=== PATIENT | male | born 1970 | race Caucasian/White ===

== ENCOUNTER 2016-11-04 10:49 | Emergency (ER) | payer OTHER ==
[2016-11-04 11:03] VITALS: BP 147/95
--- NOTE | 2016-11-04 11:21 | UC ---
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 - History of Current Complaint Chief Complaint: UCBackPain Stated Complaint: BACK PAIN Time Seen by Provider: 11/04/16 11:04 Hx Obtained From: Patient Onset/Duration: Sudden Onset, Lasting Days Timing: Constant Severity Initially: Mild Severity Currently: Moderate Pain Intensity: 6 Pain Scale Used: 0-10 Numeric Character: Sharp, Throbbing, Spasmodic Aggravating: Movement, Lifting, Cough Associated Signs And Symptoms: Positive: Negative - Allergies/Home Medications Allergies/Adverse Reactions: Allergies Allergy/AdvReac Type Severity Reaction Status Date / Time Lidocaine Allergy Hives Verified 11/04/16 10:53 Home Medications: Home Medications Acetaminophen TAB* [Tylenol TAB*] 1,000 mg PO Q6H PRN 11/04/16 [History Confirmed 11/04/16] Atorvastatin* [Lipitor*] 20 mg PO QPM 11/04/16 [History Confirmed 11/04/16] Ibuprofen TAB* [Advil TAB*] 600 mg PO Q6H PRN 11/04/16 [History Confirmed ] Pantoprazole TAB (NF) [Protonix TAB (NF)] 40 mg PO DAILY 11/04/16 [History Confirmed 11/04/16] busPIRone TAB* [Buspar TAB *] 1.5 tab PO BID 11/04/16 [History Confirmed ] PMH/Surg Hx/FS Hx/Imm Hx Previously Healthy: Yes - Surgical History Surgical History: Yes Surgery Procedure, Year, and Place: left knee surgery, skin cancer removal, nasal surgeries - Family History Known Family History: Positive: Hypertension - Social History Alcohol Use: Daily Alcohol Amount: 2 beers Substance Use Type: Marijuana Substance Use Comment - Amount & Last Used: last used Thursday Smoking Status (MU): Never Smoked Tobacco Review of Systems Constitutional: Negative Skin: Negative Eyes: Negative ENT: Negative Respiratory: Negative Cardiovascular: Negative Gastrointestinal: Negative Genitourinary: Negative Motor: Negative Neurovascular: Negative Musculoskeletal: Myalgia Neurological: Negative Psychological: Negative All Other Systems Reviewed And Are Negative: Yes Physical Exam Triage Information Reviewed: Yes Appearance: Well-Appearing, No Pain Distress, Well-Nourished Vital Signs: Initial Vital Signs Temp 99.2 F 11/04/16 10:55 Pulse 81 11/04/16 10:55 Resp 16 11/04/16 10:55 BP 147/95 11/04/16 10:55 Pulse Ox 99 11/04/16 10:55 Eyes: Positive: Conjunctiva Clear ENT: Positive: Normal ENT inspection. Negative: Nasal congestion, Nasal drainage, Trismus, Muffled/hoarse voice Dental: Negative: Gross Decay/Caries @ Neck: Positive: Supple, Nontender, No Lymphadenopathy Respiratory: Positive: Lungs clear, Normal breath sounds, No respiratory distress, No accessory muscle use Cardiovascular: Positive: RRR, No Murmur Musculoskeletal: Positive: ROM Intact, No Edema Neurological: Positive: Alert Psychological Exam: Normal Skin Exam: Normal Back Pain Course/Dx - Course Course Of Treatment: declines PT consult or prolonged out of work note - Differential Dx/Diagnosis Provider Diagnoses: right thoraic back strain/spasm. elevated BP (suspect due to pain) Discharge - Discharge Plan Condition: Stable Disposition: HOME Prescriptions: Cyclobenzaprine TAB* [Flexeril TAB*] 5 mg PO TID PRN #12 tab PRN Reason: Spasms HYDROcodone/ACETAMIN 5-325 MG* [[place] 5-325 TAB*] 1 tab PO Q4H PRN #15 tab MDD 4 PRN Reason: Pain Patient Education Materials: Thoracic Back Strain (ED) Forms: *Work Release Referrals: Alex Ren MD [Primary Care Provider] - 1 Week Additional Instructions: continue ibuprofen 600 mg 4x day as needed for pain-take with food both muscle relaxer and narcotic will cause drowsiness dont't take and drive or work Images Front/Back of Body, Lg ([place]): 1 - pain here
== END 2016-11-04 11:32 | disposition home or self-care (01) ==
LOC: UCCORT 10:49
DX: S29.012A Strain of muscle and tendon of back wall of thorax, initial encounter (principal); X50.9XXA Other and unspecified overexertion or strenuous movements or postures, initial encounter
CPT/HCPCS: 99202; G0463

== ENCOUNTER 2017-08-15 13:42 | Emergency (ER) | payer OTHER ==
[2017-08-15 14:12] VITALS: BP 142/87
--- NOTE | 2017-08-15 14:15 | UC ---
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 Onset/Duration: Sudden Onset Skin Exposure Onset/Duration: Days Ago Timing: Constant Onset Severity: Moderate Current Severity: Moderate Location: Hand (Left) Character: Swelling, Redness, Painful - Allergy/Home Medications Allergies/Adverse Reactions: Allergies Allergy/AdvReac Type Severity Reaction Status Date / Time lidocaine Allergy Swelling Verified 08/15/17 14:11 Of Face,Lips,& Throat Review of Systems Constitutional: Negative Skin: Negative Eyes: Negative ENT: Negative Respiratory: Negative Cardiovascular: Negative Gastrointestinal: Negative Genitourinary: Negative Motor: Negative Neurovascular: Negative Musculoskeletal: Negative Neurological: Negative Psychological: Negative All Other Systems Reviewed And Are Negative: Yes PMH/Surg Hx/FS Hx/Imm Hx Previously Healthy: Yes - Surgical History Surgical History: Yes Surgery Procedure, Year, and Place: left knee surgery, skin cancer removal, nasal surgeries - Family History Known Family History: Positive: Hypertension - Social History Alcohol Use: Daily Alcohol Amount: 2 beers Substance Use Type: Marijuana Substance Use Comment - Amount & Last Used: last used Thursday Smoking Status (MU): Never Smoked Tobacco Physical Exam Triage Information Reviewed: Yes Appearance: No Pain Distress Eye Exam: Normal ENT Exam: Normal Dental Exam: Normal Neck exam: Normal Neck: Positive: 1 Respiratory Exam: Normal Cardiovascular Exam: Normal Abdominal Exam: Normal Musculoskeletal Exam: Normal Neurological Exam: Normal Psychological Exam: Normal Skin Exam: Normal Laceration Repair - Laceration Repair 1 Description: Irregular Modified For Repair: No Cleansing Completed Via Routine Prep: Yes Irrigation With Pressure Irrigation Device: Yes Closure Material: Skin Adhesive Closure Method: Single Layer Suture Of: Skin Course/Dx - Course Course Of Treatment: wound repaired with dermabond with intact skin flap after thorough irrigation f/by tdap booster and IM rocephin injection - Diagnoses Provider Diagnoses: left hand laceration. puncture wound Discharge - Sign-Out/Discharge Documenting (check all that apply): Discharge/Admit/Transfer - Discharge Plan Condition: Stable Disposition: HOME Prescriptions: Cephalexin CAP* [Keflex CAP*] 500 mg PO QID 10 Days #40 cap Referrals: Kayla Mortenesn PA [Primary Care Provider] - - Billing Disposition and Condition Condition: STABLE Disposition: HOME
[2017-08-15] MEDS ORDERED: Tetan/Diph/Pertus SYR(Tdap)* 0.5 ML SYR(BOOSTRIX) use SYR IM ONE (14:18)
[2017-08-15] MEDS ORDERED: cefTRIAXone VIAL(*) 1,000 MG VIAL IM ONE (14:21)
== END 2017-08-15 15:28 | disposition home or self-care (01) ==
LOC: UCCORT 13:42
DX: Z88.4 Allergy status to anesthetic agent (principal); S61.432A Puncture wound without foreign body of left hand, initial encounter; W45.8XXA Other foreign body or object entering through skin, initial encounter; Y93.9 Activity, unspecified; Y92.9 Unspecified place or not applicable; Z23 Encounter for immunization
CPT/HCPCS: 12001; 90471; 90715; 96372; 99212; G0463; J0696

== ENCOUNTER 2018-12-23 18:30 | Emergency (ER) | payer OTHER ==
[2018-12-23 19:02] VITALS: BP 126/87
[2018-12-23] MEDS ORDERED: predniSONE TAB* 20 MG PO ONE (20:47)
--- NOTE | 2018-12-23 20:58 | UC ---
Skin Complaint HPI - HPI Summary HPI Summary: 3 DAYS OF ITCHY RASH ON SHOULDERS, BACK AND ABDOMEN. 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 HE WAS SHIRTLESS AT THE TIME. HUNTING BLIND HAD BEEN OUT IN THE [place] FOR A FEW WEEKS. NO TONGUE/LIP SWELLING. NO RESPIRATORY INVOLVEMENT. 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 - Onset/Duration: Sudden Onset, Lasting Days, Still Present Timing: Constant Onset Severity: Moderate Current Severity: Moderate Pain Intensity: 0 Pain Scale Used: 0-10 Numeric Character: Pruritus, Redness Aggravating Factor(s): Touch Alleviating Factor(s): Nothing Associated Signs & Symptoms: Positive: Rash - Allergy/Home Medications Allergies/Adverse Reactions: Allergies Allergy/AdvReac Type Severity Reaction Status Date / Time loratadine Allergy Swelling Verified 12/23/18 19:02 Of Face,Lips,& Throat PMH/Surg Hx/FS Hx/Imm Hx Other Cancer History: SKIN CANCER - Surgical History Surgical History: Yes Surgery Procedure, Year, and Place: left knee surgery, skin cancer removal, nasal surgeries - Family History Known Family History: Positive: Hypertension - Social History Alcohol Use: Daily Alcohol Amount: 2 beers Substance Use Type: Marijuana Substance Use Comment - Amount & Last Used: daily Smoking Status (MU): Never Smoked Tobacco - Immunization History Most Recent Tetanus Shot: WITHIN THE LAST 10 YRS Review of Systems All Other Systems Reviewed And Are Negative: Yes Constitutional: Positive: Negative Skin: Positive: Rash Respiratory: Positive: Negative Cardiovascular: Positive: Negative Gastrointestinal: Positive: Negative Physical Exam Triage Information Reviewed: Yes Appearance: Well-Appearing, No Pain Distress, Well-Nourished Vital Signs: Initial Vital Signs Temp 97.9 F 12/23/18 18:57 Pulse 70 12/23/18 18:57 Resp 18 12/23/18 18:57 BP 126/87 12/23/18 18:57 Pulse Ox 99 12/23/18 18:57 Vital Signs Reviewed: Yes Eyes: Positive: Conjunctiva Clear ENT: Positive: Hearing grossly normal Neck: Positive: Supple Respiratory: Positive: No respiratory distress, No accessory muscle use Cardiovascular: Positive: Pulses Normal Abdomen Description: Positive: Soft Musculoskeletal: Positive: No Edema Neurological: Positive: Alert Psychological: Positive: Normal Response To Family, Age Appropriate Behavior Skin: Positive: Rashes - MACULOPAPULAR ERYTHEMATOUS, RAISED RASH IN STREAKS ACROSS UPPER BACK AND SCATTERED AREAS OVER LOWER BACK AND ABDOMEN. NO EXCORATION OR DRAINAGE. Course/Dx - Diagnoses Provider Diagnosis: Contact dermatitis Discharge ED - Sign-Out/Discharge Documenting (check all that apply): Patient Departure All imaging exams completed and their final reports reviewed: No Studies - Discharge Plan Condition: Stable Disposition: HOME Prescriptions: predniSONE TAB* [Deltasone TAB*] 50 mg PO DAILY #4 tab Triamcinolone 0.1% CREAM(NF) [Kenalog Cream 0.1%(NF)] 1 applic TOPICAL TID PRN # 1 tube PRN Reason: Itching Patient Education Materials: Contact Dermatitis (ED) Referrals: Addison Cox MD [Primary Care Provider] - If Needed Additional Instructions: USE DAILY HYPOALLERGENIC MOISTURIZING LOTION TAKE PREDNISONE DAILY PRESCRIBED AVOID HEAT AND HOT WATER TAKE OTC ANTIHISTAMINE DAILY (CLARITIN (LORATADINE), ZYRTEC (CETIRIZINE) OR BARB (FEXOFENADINE) IN THE MORNING, 25-50MG BENADRYL AT NIGHT) DO NOT SCRATCH KEEP COOL, CLEAN AND DRY USE TOPICAL STEROID SPARINGLY 2-3 TIMES DAILY ON ITCHY SPOTS. KEEP AWAY FROM MUCOUS MEMBRANES. GO TO THE ED WITHOUT FAIL IF YOU DEVELOP ANY RESPIRATORY INVOLVEMENT, TONGUE/ LIP SWELLING, FEVER, NAUSEA/VOMITING OR ANY OTHER CONCERNING SYMPTOMS. IF YOU HAVE RECURRENT SYMPTOMS CONSIDER EVAL BY AN INTERIOR DESIGN COORDINATOR. - Billing Disposition and Condition Condition: STABLE Disposition: Home
== END 2018-12-23 20:55 | disposition home or self-care (01) ==
LOC: UCCORT 18:30
DX: L25.9 Unspecified contact dermatitis, unspecified cause (principal); Z88.8 Allergy status to other drugs, medicaments and biological substances; Z85.828 Personal history of other malignant neoplasm of skin
CPT/HCPCS: 99212; G0463; J7512